=== PATIENT | female | born 1995 | race Caucasian/White ===

== ENCOUNTER 2016-07-19 16:40 | Emergency (ER) | payer OTHER ==
[~2016-07-19] VITALS: Ht 165.1 cm; Wt 78.5 kg
[2016-07-19 17:39] LABS: BILIRUBIN,URINE NEGATIVE (NEG); GLUCOSE,URINE NEGATIVE (NEG); NITRITE,URINE NEGATIVE (NEG); PH,URINE 6.5; PROTEIN,URINE 30 mg/dL (NEG-TRACE)
[2016-07-19 17:51] LABS: BACTERIA,URINE MANY /HPF (0-FEW); RBC,URINE 0 /HPF (0-2); SQUAMOUS EPITHELIAL CELL,UR MANY /LPF
[2016-07-19] MEDS ORDERED: ONDANSETRON PF 4 MG/2 ML VIAL. IV ONE (18:00)
[2016-07-19] MEDS ORDERED: IV NORMAL SALINE 1000ML BAG 1,000 ML IV SCH (18:00)
[2016-07-19 18:01] LABS: BASO % 1 % (0-3); EOS % 2 % (0-3); HEMATOCRIT 39.2 % (36.0-47.0); LYMPH # 2.2 x10^3/uL (1.0-4.8); LYMPH % 32 % (24-48); MEAN CORPUSCULAR HEMOGLOBIN 31 pg (25-35); MEAN CORPUSCULAR HGB CONC 33 g/dL (31-37); MEAN CORPUSCULAR VOLUME 92 fL (79-100); MONO % 9 % (0-9); NEUT % 56 % (31-73); PLATELET COUNT 272 x10^3/uL (140-400); RED BLOOD COUNT 4.24 x10^6/uL (3.50-5.40); RED CELL DISTRIBUTION WIDTH 13.1 % (11.5-14.5); WHITE BLOOD COUNT 6.7 x10^3/uL (4.0-11.0)
[2016-07-19 18:16] LABS: CALCIUM 9.3 mg/dL (8.5-10.1); CREATININE 0.6 mg/dL (0.6-1.0); GFR 126.2; POTASSIUM 3.5 mmol/L (3.5-5.1)
[2016-07-19 18:23] LABS: ALBUMIN 3.9 g/dL (3.4-5.0); ALBUMIN/GLOBULIN RATIO 1.1 (1.0-1.7); TOTAL BILIRUBIN 0.6 mg/dL (0.2-1.0); TOTAL PROTEIN 7.3 g/dL (6.4-8.2)
[2016-07-19] MEDS ORDERED: FAMOTIDINE 20 MG/2 ML VIAL IVP ONE (18:30)
--- NOTE | 2016-07-19 18:36 | RAD ---
PROCEDURE Ultrasound limited abdomen HISTORY Right upper quadrant pain TECHNIQUE Sonographic examination of right upper quadrant was performed and multiple static images were obtained. FINDINGS The majority of the liver is visualized and appears homogeneous. The gallbladder appears normal. The common bile duct appears normal measures 2 millimeters in diameter. The pancreas is not well seen due to overlying bowel gas. The kidney appears normal measures 10 centimeters in length. IMPRESSION No acute findings. Electronically signed by: Chris Loco MD (Jul 19, 2016 18:35:04)
[2016-07-19] MEDS ORDERED: OMEP20TA PO (18:56)
[2016-07-19] MEDS ORDERED: TRAM50TA PO (18:56)
[2016-07-19] MEDS ORDERED: ONDA4TAB10 SL (18:56)
--- NOTE | 2016-07-19 18:56 | PHYS DOC ---
Past Medical History Past Medical History: No Pertinent History Past Surgical History: Tonsillectomy Alcohol Use: None Drug Use: None Adult General Chief Complaint Chief Complaint: ABDOMINAL PAIN HPI HPI Patient is a 21 year old [f__sex] who presents with [] Review of Systems Review of Systems Constitutional: Denies fever or chills [] Eyes: Denies change in visual acuity, redness, or eye pain [] HENT: Denies nasal congestion or sore throat [] Respiratory: Denies cough or shortness of breath [] Cardiovascular: No additional information not addressed in HPI [] GI: Denies abdominal pain, nausea, vomiting, bloody stools or diarrhea [] : Denies dysuria or hematuria [] Musculoskeletal: Denies back pain or joint pain [] Integument: Denies rash or skin lesions [] Neurologic: Denies headache, focal weakness or sensory changes [] Endocrine: Denies polyuria or polydipsia [] Current Medications Current Medications Current Medications Medications (Trade) Dose Ordered Sig/Jairo Start Time Stop Time Status Last Admin Dose Admin Famotidine (Pepcid) 20 mg 1X ONCE 07/19/16 18:30 07/19/16 18:31 DC 07/19/16 18:55 20 MG Ondansetron HCl (Zofran) 4 mg 1X ONCE 07/19/16 18:00 07/19/16 18:01 DC 07/19/16 17:53 4 MG Sodium Chloride (Iv Sodium Chloride 0.9% 1000ml Bag) 1,000 ml @ 1,000 mls/hr Q1H 07/19/16 18:00 07/19/16 18:59 DC 07/19/16 17:53 1,000 MLS/HR Allergies Allergies Allergies Coded Allergies Type Severity Reaction Last Updated Verified sulfamethoxazole Adverse Reaction Intermediate Diarrhea 07/19/16 Yes trimethoprim Adverse Reaction Intermediate Diarrhea 07/19/16 Yes Physical Exam Physical Exam Constitutional: Well developed, well nourished, no acute distress, non-toxic appearance. [] HENT: Normocephalic, atraumatic, bilateral external ears normal, oropharynx moist, no oral exudates, nose normal. [] Eyes: PERRLA, EOMI, conjunctiva normal, no discharge. [] Neck: Normal range of motion, no tenderness, supple, no stridor. [] Cardiovascular:Heart rate regular rhythm, no murmur [] Lungs & Thorax: Bilateral breath sounds clear to auscultation [] Abdomen: Bowel sounds normal, soft, no tenderness, no masses, no pulsatile masses. [] Skin: Warm, dry, no erythema, no rash. [] Back: No tenderness, no CVA tenderness. [] Extremities: No tenderness, no cyanosis, no clubbing, ROM intact, no edema. [] Neurologic: Alert and oriented X 3, normal motor function, normal sensory function, no focal deficits noted. [] Psychologic: Affect normal, judgement normal, mood normal. [] Current Patient Data Vital Signs Vital Signs Date Time Temp Pulse Resp B/P Pulse Ox O2 Delivery O2 Flow Rate FiO2 07/19/16 16:43 98.6 77 16 128/94 99 Room Air 98.6 Lab Values Laboratory Tests Test 07/19/16 16:16 07/19/16 17:07 07/19/16 17:45 POC Urine HCG, Qualitative Hcg negative (Negative) Urine Collection Type Unknown Urine Color Yellow Urine Clarity Clear Urine pH 6.5 Urine Specific [place] 1.025 Urine Protein 30mg/dL (NEG-TRACE) Urine Glucose (UA) Negativemg/dL (NEG) Urine Ketones (Stick) Tracemg/dL (NEG) Urine Blood Negative (NEG) Urine Nitrite Negative (NEG) Urine Bilirubin Negative (NEG) Urine Urobilinogen Dipstick 1.0mg/dL (0.2 mg/dL) Urine Leukocyte Esterase Small (NEG) Urine RBC 0/HPF (0-2) Urine WBC 1-4/HPF (0-4) Urine Squamous Epithelial Cells Many/LPF Urine Bacteria Many/HPF (0-FEW) Urine Mucus Marked/LPF White Blood Count 6.7x10^3/uL (4.0-11.0) Red Blood Count 4.24x10^6/uL (3.50-5.40) Hemoglobin 13.0g/dL (12.0-15.5) Hematocrit 39.2% (36.0-47.0) Mean Corpuscular Volume 92fL (79-100) Mean Corpuscular Hemoglobin 31pg (25-35) Mean Corpuscular Hemoglobin Concent 33g/dL (31-37) Red Cell Distribution Width 13.1% (11.5-14.5) Platelet Count 272x10^3/uL (140-400) Neutrophils (%) (Auto) 56% (31-73) Lymphocytes (%) (Auto) 32% (24-48) Monocytes (%) (Auto) 9% (0-9) Eosinophils (%) (Auto) 2% (0-3) Basophils (%) (Auto) 1% (0-3) Neutrophils # (Auto) 3.8x10^3uL (1.8-7.7) Lymphocytes # (Auto) 2.2x10^3/uL (1.0-4.8) Monocytes # (Auto) 0.6x10^3/uL (0.0-1.1) Eosinophils # (Auto) 0.1x10^3/uL (0.0-0.7) Basophils # (Auto) 0.0x10^3/uL (0.0-0.2) Sodium Level 144mmol/L (136-145) Potassium Level 3.5mmol/L (3.5-5.1) Chloride Level 108mmol/L (98-107) H Carbon Dioxide Level 24mmol/L (21-32) Anion Gap 12 (6-14) Blood Urea Nitrogen 10mg/dL (7-20) Creatinine 0.6mg/dL (0.6-1.0) Estimated GFR (Cockcroft-Gault) 126.2 BUN/Creatinine Ratio 17 (6-20) Glucose Level 82mg/dL (70-99) Calcium Level 9.3mg/dL (8.5-10.1) Total Bilirubin 0.6mg/dL (0.2-1.0) Aspartate Amino Transferase (AST) 17U/L (15-37) Alanine Aminotransferase (ALT) 18U/L (14-59) Alkaline Phosphatase 57U/L (46-116) Total Protein 7.3g/dL (6.4-8.2) Albumin 3.9g/dL (3.4-5.0) Albumin/Globulin Ratio 1.1 (1.0-1.7) Lipase 83U/L (73-393) Laboratory Tests 07/19/16 17:45 Laboratory Tests 07/19/16 17:45 EKG EKG [] Radiology/Procedures Radiology/Procedures RUQ US: IMPRESSION No acute findings Course & Med Decision Making Course & Med Decision Making Pertinent Labs and Imaging studies reviewed. (See chart for details) Patient is 21 year old female who presents with RUQ pain. Likely related to gallbladder, DDx also includes pancreatitis, PUD. Will check labs, RUQ US to evaluate. IVF bolus, nausea meds ordered for relief of symptoms. Labs unremarkable; LFTs, lipase all wnl. Imaging results as above. Discussed results with patient and family. Patient feeling better at this time. Discussed need for follow up with gastroenterology. Will discharge with rx for pain meds, nausea meds, PPI. Given instructions for follow up and return precautions. Dragon Disclaimer Dragon Disclaimer This electronic medical record was generated, in whole or in part, using a voice recognition dictation system. Departure Departure Impression: Primary Impression: RUQ abdominal pain Disposition: HOME, SELF-CARE Condition: IMPROVED Referrals: SARATH KEENAN (PCP) ADONIS TREVIÑO MD Patient Instructions: Abdominal Pain (Nonspecific) Additional Instructions: Thank you for allowing us to provide care today in the Emergency Department. Take the provided medication as directed. Use caution when taking the pain medication as it can make you drowsy. Schedule a follow up appointment with your primary care doctor and with a GI specialist using the provided contact information. Return promptly to the Emergency Department if you develop any new or concerning symptoms. Scripts Tramadol Hcl 50 Mg [id number] Mg PO Q6H PRN PAIN #15 TAB Prov:SHANE ROGEL MD 07/19/16 Omeprazole 20 Mg Tablet.dr20 Mg PO DAILY #30 TAB Prov:SHANE ROGEL MD 07/19/16 Ondansetron (Zofran Odt)4 Mg Tab.rapdis1 Tab SL Q8HRS PRN NAUSEA #15 TAB Prov:SHANE ROGEL MD 07/19/16 SHANE ROGEL MD Jul 19, 2016 18:56
[2016-07-19 19:00] VITALS: BP 110/74
== END 2016-07-19 19:01 | disposition home or self-care (01) ==
LOC: ER 16:40
DX: R10.11 Right upper quadrant pain (principal); R11.0 Nausea; Z88.2 Allergy status to sulfonamides; Z88.1 Allergy status to other antibiotic agents
CPT/HCPCS: 36415; 76705; 80053; 81001; 81025; 83690; 85027; 87086; 96361; 96374; 96375; 99285; J2405; J7030; S0028